=== PATIENT | male | born 1995 | race Asian ===

== ENCOUNTER 2018-09-23 09:25 | Emergency (ER) | payer BC, OTHER ==
[~2018-09-23] VITALS: Ht 172.7 cm; Wt 77.3 kg
[~2018-09-23 09:25] MED LIST: ACET-2116 PO; IBUP-2275 PO; OSEL12SU PO; [UNRECOGNIZED DRUG - CODE] PO; [UNRECOGNIZED DRUG - CODE] PO
[2018-09-23] MEDS ORDERED: IBUPROFEN 600 MG TABLET PO ONE (09:45)
[2018-09-23 10:56] VITALS: BP 112/64
== END 2018-09-23 11:02 | disposition home or self-care (01) ==
LOC: EMS 09:32
DX: S92.354A Nondisplaced fracture of fifth metatarsal bone, right foot, initial encounter for closed fracture (principal); X50.1XXA Overexertion from prolonged static or awkward postures, initial encounter; Y93.89 Activity, other specified; Y92.89 Other specified places as the place of occurrence of the external cause; Y99.8 Other external cause status
CPT/HCPCS: 29515